=== PATIENT | female | born 1980 | race African-American/Black ===

== ENCOUNTER 2022-06-27 15:49 | Emergency (ER) | payer MEDICAID ==
[~2022-06-27] VITALS: Ht 165.1 cm; Wt 108.0 kg
[2022-06-27] MEDS ORDERED: IBUPROFEN 400MG TABLET PO ONE (16:30)
[2022-06-27] MEDS ORDERED: MECLIZINE 25MG TABLET PO ONE (16:30)
[2022-06-27 16:49] LABS: BASOPHILS % 0.4 % (0.0-2.0); EOSINOPHILS % 3.4 % (0.0-5.0); HEMATOCRIT. 37.2 % (36.0-48.0); HEMOGLOBIN. 12.4 g/dL (12.0-16.0); LYMPHOCYTES % 37.1 % (20.0-50.0); MEAN CORPUSCULAR HEMOGLOBIN 30.3 pg (28.0-32.0); MEAN CORPUSCULAR VOLUME 91.2 fL (81.0-99.0); MEAN PLATELET VOLUME 9.3 fl (7.4-10.4); MONOCYTES % 9.7 % (2.0-8.0); NEUTROPHILS % 49.4 % (40.0-76.0); PLATELET 251 x1000/uL (130-400); RED BLOOD CELL COUNT 4.07 mill/uL (4.2-5.4)
[2022-06-27 16:59] LABS: CHLORIDE 103 mEq/L (98-107)
[2022-06-27 17:25] LABS: HCG SCREEN NEGATIVE
[2022-06-27 19:16] LABS: CLARITY URINE CLOUDY (CLEAR); COLOR URINE YELLOW (YELLOW); KETONES URINE TRACE (NEGATIVE); LEUKOCYTE ESTERASE URINE 2+ (NEGATIVE); NITRITE URINE NEGATIVE (NEGATIVE); OCCULT BLOOD URINE NEGATIVE (NEGATIVE); PH URINE 5.5 (4.5-8.0); PROTEIN URINE NEGATIVE (NEGATIVE); SPECIFIC GRAVITY URINE 1.016 (1.005-1.030)
[2022-06-27] MEDS ORDERED: DIF15 MT (19:39)
[2022-06-27] MEDS ORDERED: CEPH500C2 MT (19:39)
[2022-06-27 20:22] VITALS: BP 120/73
== END 2022-06-27 20:24 | disposition home or self-care (01) ==
LOC: ER 15:49
DX: R42 Dizziness and giddiness (principal); M25.552 Pain in left hip; M25.551 Pain in right hip; B37.49 Other urogenital candidiasis; M79.662 Pain in left lower leg; M79.661 Pain in right lower leg
CPT/HCPCS: 36415; 71045; 73521; 80053; 81003; 84703; 85025; 93005; 93970; 99285; J8597